=== PATIENT | female | born 1950 | race Caucasian/White ===

== ENCOUNTER 2016-09-04 09:20 | Emergency (ER) | payer OTHER ==
[~2016-09-04] VITALS: Ht 165.1 cm; Wt 44.0 kg
[2016-09-04] MEDS ORDERED: SODIUM CHLORIDE FLUSH 3 ML SYR IV PRN (09:45)
[2016-09-04] MEDS ORDERED: SODIUM CHLORIDE FLUSH 10 ML SYR IV PRN (09:45)
[2016-09-04] MEDS ORDERED: ALBUTEROL/IPRATROPIUM 3MG-0.5MG/3ML (DUONEB) NEB VIAL INH ONE (09:45)
--- NOTE | 2016-09-04 10:18 | NUR ---
Patient rounds, reports feeling better after RT treatment.
[2016-09-04 10:29] LABS: BASOPHILS % (AUTO) 0 % (0-2); EOSINOPHILS % (AUTO) 0 % (0-4); LYMPHOCYTES # (AUTO) 2.9 X10^3; MEAN CORPUSCULAR HEMOGLOBIN 29.6 PG (26.0-34.0); MEAN CORPUSCULAR HGB CONC 33.1 g/dL (31.0-37.0); MEAN CORPUSCULAR VOLUME 89 FL (80-100); MEAN PLATELET VOLUME 9.4 FL (6.0-9.5); MONOCYTES # (AUTO) 1.2 X10^3; MONOCYTES % (AUTO) 12 % (3-11); NEUTROPHILS # (AUTO) 5.9 X10^3; NEUTROPHILS % (AUTO) 59 % (51-67); PLATELET COUNT 399 10^3uL (150-450)
[2016-09-04 10:41] LABS: ALBUMIN 4.2 g/dL (3.4-5.0); ANION GAP 14.4 MEQ/L (3-15); CALCULATED IONIZED CALCIUM 4.4 mg/dL (3.8-4.6); TOTAL PROTEIN 6.9 g/dL (6.4-8.5)
--- NOTE | 2016-09-04 10:58 | Diagnostic Imaging Report ---
INDICATION: Shortness of air and cough x 1 week. EXAMINATION: Two-view chest on 09/04/2016. COMPARISON: 05/28/2013. FINDINGS: The lungs are markedly hyperinflated; however, this is similar to the previous examination. The heart and pulmonary vasculature appear unremarkable. Calcified lymph nodes in the mediastinum are stable. There are no new infiltrates or effusions appreciated. Densities in the anterior aspect of the chest on the lateral view are retrosternal in location and stable, likely calcified granulomata. IMPRESSION: Marked hyperinflation of the lungs, likely due to emphysematous disease, with other chronic changes including old granulomatous changes but no acute abnormality at this time. Dictated by: Dictated on workstation # [id number]
--- NOTE | 2016-09-04 11:50 | NUR ---
IV left in pt right AC for outpatient CT scan
[2016-09-04 11:51] VITALS: BP 132/77
== END 2016-09-04 11:52 | disposition home or self-care (01) ==
LOC: ED 09:22
DX: J44.1 Chronic obstructive pulmonary disease with (acute) exacerbation (principal); J98.8 Other specified respiratory disorders; Z72.0 Tobacco use
CPT/HCPCS: 36415; 71020; 80053; 85025; 85379; 87486; 87581; 87633; 87798; 94640; 99283; 99284

== ENCOUNTER → 2016-09-04 | Outpatient (CLI) | payer OTHER ==
[~2016-09-04] MED LIST: ACET1TAB PO; ALBU8.5H2 IH; AMOX500C5 PO; AMOX875T2 PO; AMOX875T47 PO; BENZ-22 PO; BUPR150T9 PO; CITA20TA12 PO; CITA40TA5 PO; CYCL10TA45 PO; DOXY100T41 PO; DUONEB 0.5 MG-33 ML IH; FA/M1TAB2 PO; FLUT250D IH; GFN600TCR PO; HYDR-3702 PO; IBUP-1772 PO; IPRA3AMP11 INH; LD5PT TOP; LEVO750T76 PO; METH4TAB27 PO; MOME13HF IH; NCT7P TD; NYST1000 PO; PRD20T PO; PRED20TA PO; Prednisone; TIOT18CA IH; TRAM-25 PO; VENL150C53 PO
--- NOTE | 2016-09-04 13:37 | Diagnostic Imaging Report ---
PROCEDURE: CT chest with and without contrast. TECHNIQUE: Multiple contiguous axial images were obtained through the chest before and after administration of intravenous contrast. INDICATION: COPD exacerbation, right lower lobe segmental bronchus defect. Patient having trouble breathing. EXAMINATION: CT of the chest with and without contrast dated 09/04/2016. COMPARISON: 05/31/2016. FINDINGS: On previous examination a filling defect was described within a right lower lobe segmental bronchus. This does demonstrate some interval improvement. The remaining lungs demonstrate marked emphysematous disease. No pneumothorax appreciated. Hyperdensity in the anterior aspect of the right lower chest is stable likely a calcified granuloma. There is a density in the medial aspect of the right lung base likely atelectasis and/or scar. Within the left midlung image #41 of 65 there is a small nodule along the lateral aspect of the mid lung which measures just over 3 mm in size. This may be slightly more prominent than on previous imaging but could be due to change in slice selection. This should be followed to assure stability. There are no pericardial or pleural effusions. Calcified granulomata and lymph nodes noted in the perimediastinal and perihilar regions. No new lymphadenopathy is appreciated. Vascular structures demonstrate no acute abnormality. Visualized upper abdominal structures demonstrate diffuse fatty infiltration throughout the liver. Previously described hypodensity in the right lobe of the liver is not included on this examination. The osseous structures are stable. IMPRESSION: 1. Previously described filling defect within a right lower lobe bronchus has markedly improved and is almost completely resolved. 2. Nodule in the left midlung periphery not significantly changed from previous examination. Continued followup with another three-month CT examination recommended to assure continued stability. Other incidental findings as discussed above. Dictated by: Dictated on workstation # [id number]
== END ==
LOC: RAD 09:17
PROVIDERS: ATTEND Family Medicine
DX: J44.1 Chronic obstructive pulmonary disease with (acute) exacerbation (principal); R91.8 Other nonspecific abnormal finding of lung field
CPT/HCPCS: 71270; Q9967